=== PATIENT | female | born 1985 | race Asian ===

== ENCOUNTER 2021-02-11 18:24 | Emergency (ER) | payer BC ==
[~2021-02-11] VITALS: Ht 165.1 cm; Wt 45.4 kg
[2021-02-11 18:45] VITALS: BP_SYST 144
== END 2021-02-11 19:20 | disposition left against medical advice (07) ==
LOC: SED 18:24
DX: H92.01 Otalgia, right ear (principal); Z53.21 Procedure and treatment not carried out due to patient leaving prior to being seen by health care provider